=== PATIENT | male | born 1950 | race Caucasian/White ===

== ENCOUNTER 2017-03-31 18:44 | Emergency (ER) | payer OTHER ==
[~2017-03-31 18:44] MED LIST: ASPIRIN PO; IRBE150T51 PO; LANS30CA53 PO; ROSU5TAB PO
[2017-03-31 19:35] LABS: BASOPHILS % (AUTO) 0.7 % (0.0-5.0); EOSINOPHILS % (AUTO) 1.3 % (0.0-8.0); HEMATOCRIT 41.1 % (42-54); MEAN CORPUSCULAR HEMOGLOBIN 34.3 pg (27.0-33.0); MEAN CORPUSCULAR HGB CONC 34.1 g/dL (32.0-36.0); MEAN CORPUSCULAR VOLUME 100.7 fL (79-99); MONOCYTES % (AUTO) 8.3 % (3.0-13.0); NEUTROPHILS % (AUTO) 69.7 % (40.0-77.0); PLATELET COUNT (AUTO) 196 K/uL (130-400); RED BLOOD CELL COUNT(AUTO) 4.08 MIL/uL (4.50-6.20); RED CELL DISTRIBUTION WIDTH 12.6 % (11.0-15.5); WHITE BLOOD COUNT (AUTO) 10.6 K/uL (4.8-10.8)
[2017-03-31 19:48] LABS: CREATININE 1.1 mg/dL (0.5-1.5)
[2017-03-31 19:53] LABS: ALBUMIN 3.5 g/dL (3.5-5.0); BILIRUBIN,TOTAL 0.5 mg/dL (0.2-1.0); TOTAL PROTEIN, SERUM 7.6 g/dL (6.0-8.3)
[2017-03-31 19:55] LABS: INR 0.97 (0.85-1.15); PARTIAL THROMBOPLASTIN TIME 28.7 SEC (26.3-35.5); PROTHROMBIN TIME 10.2 SEC (9.6-11.6)
[2017-03-31] MEDS ORDERED: TRAMADOL HCL 50 MG TABLET ONE (20:29)
[2017-03-31] MEDS ORDERED: TETANUS/DIPHTHERIA TOXOID [ADULT] 0.5 ML VIAL IM ONE (20:30)
== END 2017-03-31 20:48 | disposition home or self-care (01) ==
LOC: EDH 18:44
DX: S00.212A Abrasion of left eyelid and periocular area, initial encounter (principal); S00.211A Abrasion of right eyelid and periocular area, initial encounter; S80.211A Abrasion, right knee, initial encounter; M54.9 Dorsalgia, unspecified; R42 Dizziness and giddiness; I10 Essential (primary) hypertension; Z79.82 Long term (current) use of aspirin; Z79.899 Other long term (current) drug therapy; W01.0XXA Fall on same level from slipping, tripping and stumbling without subsequent striking against object, initial encounter; Y93.01 Activity, walking, marching and hiking; Y92.89 Other specified places as the place of occurrence of the external cause; Y99.8 Other external cause status
CPT/HCPCS: 36415; 70450; 70486; 72125; 80053; 82550; 84484; 85025; 85610; 85730; 90471; 90714; 93005

== ENCOUNTER → 2018-10-18 | Outpatient (CLI) | payer OTHER | END | disposition home or self-care (01) | LOC: OIH 07:31 | PROVIDERS: ATTEND Internal Medicine | DX: Z13.6 Encounter for screening for cardiovascular disorders (principal) | CPT/HCPCS: 75571 ==

== ENCOUNTER → 2018-11-01 | Outpatient (CLI) | payer OTHER | END | disposition home or self-care (01) | LOC: SHCH 12:42 | PROVIDERS: ATTEND Internal Medicine Cardiovascular Disease | DX: I65.23 Occlusion and stenosis of bilateral carotid arteries (principal) | CPT/HCPCS: 93880 ==

== ENCOUNTER 2018-11-21 06:00 | Day surgery (SDC) | payer OTHER ==
[2018-11-14 11:22] VITALS: BP 139/80
[2018-11-14 11:29] LABS: BASOPHILS % (AUTO) 0.4 % (0.0-5.0); EOSINOPHILS % (AUTO) 2.1 % (0.0-8.0); HEMATOCRIT 43.3 % (42-54); LYMPHOCYTES % (AUTO) 22.8 % (21.0-51.0); MEAN CORPUSCULAR HEMOGLOBIN 34.6 pg (27.0-33.0); MEAN CORPUSCULAR HGB CONC 33.8 g/dL (32.0-36.0); MEAN CORPUSCULAR VOLUME 102.1 fL (79-99); MONOCYTES % (AUTO) 8.6 % (3.0-13.0); NEUTROPHILS % (AUTO) 66.1 % (40.0-77.0); PLATELET COUNT (AUTO) 178 K/uL (130-400); RED BLOOD CELL COUNT(AUTO) 4.24 MIL/uL (4.50-6.20); RED CELL DISTRIBUTION WIDTH 12.7 % (11.0-15.5); WHITE BLOOD COUNT (AUTO) 8.7 K/uL (4.8-10.8)
[2018-11-14 11:30] LABS: APPEARANCE,URINE Clear (CLEAR); BILIRUBIN,URINE Negative (NEGATIVE); COLOR,URINE Yellow (YELLOW); GLUCOSE, URINE (UA) Negative (NEGATIVE); KETONES,URINE Negative (NEGATIVE); LEUKOCYTE ESTERASE ,URINE Negative (NEGATIVE); NITRATE,URINE Negative (NEGATIVE); OCCULT BLOOD,URINE Negative (NEGATIVE); PROTEIN,URINE Negative (NEGATIVE); UROBILINOGEN,URINE 0.2 mg/dL (0.2-1.0)
[2018-11-14 11:34] LABS: CREATININE 1.1 mg/dL (0.5-1.5); POTASSIUM 4.9 mmol/L (3.5-5.1)
[2018-11-14 11:41] LABS: INR 0.95 (0.85-1.15); PARTIAL THROMBOPLASTIN TIME 27.8 SEC (26.3-35.5)
[2018-11-21] VITALS (8 sets, daily range): BP systolic 100–122; BP diastolic 66–73
[~2018-11-21] VITALS: Ht 175.3 cm; Wt 81.9 kg
[~2018-11-21 06:00] MED LIST changes: +HYDR12.54 PO
[2018-11-21] MEDS ORDERED: SODIUM CHLORIDE 0.9% 1000ML 1,000 ML IV ONE (06:06)
[2018-11-21] MEDS ORDERED: ASPI81TA40 PO (06:46)
[2018-11-21] MEDS ORDERED: IOHEXOL-350 50ML VIAL IV ONE ×2 (07:11→08:03)
[2018-11-21] MEDS ORDERED: NITROGLYCERIN 5 MG/ML 10 ML VIAL IV ONE (07:11)
[2018-11-21] MEDS ORDERED: BIVALIRUDIN 250 MG/VIAL IV ONE (07:11)
[2018-11-21] MEDS ORDERED: LIDOCAINE HCL 2% 20ML ONE (07:12)
[2018-11-21] MEDS ORDERED: IOHEXOL 350 MG/ML 100ML INFUS..BTL IV ONE (07:12)
[2018-11-21] MEDS ORDERED: FENTANYL CITRATE PF 50 MCG/1 ML 2ML VIAL ONE (07:12)
[2018-11-21] MEDS ORDERED: MIDAZOLAM HCL 1 MG/ML 2ML VIAL ONE (07:12)
--- NOTE | 2018-11-21 07:15 | NUR ---
PROCEDURE PT TAKEN TO [facility] VIA BED, NO DISTRESS NOTED FAMILY AT BEDSIDE
[2018-11-21] MEDS ORDERED: HEPARIN SODIUM 1000UNIT/ML 10ML VIAL ONE (07:26)
[2018-11-21] MEDS ORDERED: VERAPAMIL HCL 2.5 MG/ML VIAL ONE (07:26)
[2018-11-21] MEDS ORDERED: NICARDIPINE HCL 25 MG/10 ML ML IV ONE (07:31)
[2018-11-21] MEDS ORDERED: SODIUM CHLORIDE 0.9% 1000ML 1,000 ML IV SCH (08:00)
--- NOTE | 2018-11-21 08:55 | NUR ---
POST RECEIVED PT FROM [facility], S/P LEFT HEART CATH VIA RIGHT RADIAL APPROACH TBAND IN PLACE TO RIGHT WRIST. SEE POST CATH ASSESSMENT . VS STABLE ON ARRIVAL. PLAN OF CARE DISCUSS WITH PATIENT/SPOUSE. CALL LIGHT WITHIN REACH
--- NOTE | 2018-11-21 09:30 | NUR ---
TBAND TOTAL 12 ML REMOVED 2ML FROM T BAND STARTED BLEEDING - INSERT 2ML
--- NOTE | 2018-11-21 10:05 | NUR ---
TBAND TOTAL AFTER 2ML REMOVED IS 10 ML
--- NOTE | 2018-11-21 10:05 | NUR ---
TBAND- TOTAL 12ML REMOVE 2ML FROM TBAND, NO BLEEDING NOTED
--- NOTE | 2018-11-21 10:25 | NUR ---
TBAND REMOVE 2ML FROM TBAND NO BLEEDING NOTED. NOW TOTAL 8ML
--- NOTE | 2018-11-21 10:45 | NUR ---
tband REMOVED 2 ML FROM T BAND ,NO BLEEDING NOTED. TOTAL NOW 6 ML AIR
--- NOTE | 2018-11-21 11:05 | NUR ---
TBAND REMOVED 2 ML AIR FROM TBAND, NO BLEEDING TOTAL AIR NOW 4ML
--- NOTE | 2018-11-21 11:30 | NUR ---
T BAND REMOVED 2 ML AIR FROM T BAND, TOTAL AIR NOW 2 ML AIR
--- NOTE | 2018-11-21 11:50 | NUR ---
T BAND REMOVED 2ML OF AIR FROM T BAND ,NO BLEEDING OR HEMATOMA TO RIGHT WRIST. T BAND REMOVED AT THIS TIME AND STERILE DRESSING APPLIED TO SITE PER MD ORDERS. STRONG RIGHT RADIAL PULSE. RIGHT ARM PINK IN COLOR WARM TO TOUCH, PT INSTRUCTED ON BLEEDING PRECAUTONS. VERBALIZED UNDERSTANIDNG. SPOUSE AT BEDSIDE
--- NOTE | 2018-11-21 12:25 | NUR ---
dc pt dc home via w[place],no distress noted. denied any pain or discomforts.l pt accompanied by spouse, right wrist with dressing dry and intact, dc instructions reinforced with patient /spouse,
== END 2018-11-21 12:25 | disposition home or self-care (01) ==
LOC: DAH 06:00
PROVIDERS: ATTEND Internal Medicine Cardiovascular Disease
DX: I25.10 Atherosclerotic heart disease of native coronary artery without angina pectoris (principal); I10 Essential (primary) hypertension; E78.5 Hyperlipidemia, unspecified; Z98.890 Other specified postprocedural states; I44.7 Left bundle-branch block, unspecified; Z87.891 Personal history of nicotine dependence; Z79.82 Long term (current) use of aspirin; Z79.899 Other long term (current) drug therapy
CPT/HCPCS: 36415; 71045; 80048; 81003; 85025; 85610; 85730; 93005; 93458; A4215; A4216; A4221; A4222; A4223 ×3; A4606; C1769; C1894 ×3; J1644 ×2; J2250; J3010; J3490 ×3; J7030; Q9965; Q9967 ×3; 99156; 99157; J0583

== ENCOUNTER → 2023-09-30 | Outpatient (CLI) | payer MEDICARE ==
[~2023-09-30] MED LIST changes: +ASPI81TA40 PO; -ASPIRIN PO; +IOHEXOL 350 MG/ML 100ML INFUS..BTL IV ONE
== END | disposition home or self-care (01) ==
LOC: RAH 10:21
PROVIDERS: ATTEND Surgery
DX: K57.30 Diverticulosis of large intestine without perforation or abscess without bleeding (principal); I70.0 Atherosclerosis of aorta; K55.9 Vascular disorder of intestine, unspecified
CPT/HCPCS: 74177; Q9967